=== PATIENT | male | born 1980 ===

== ENCOUNTER 2024-01-11 08:25 | Outpatient (AMB) | payer MEDICARE, MEDICAID, SELFPAY ==
[2024-01-11 08:34] VITALS: BP 120/76; PULSE 70; RESP 18; TEMP 36.8; O2SAT 96; BMI 33.9
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
== END 2024-01-11 09:36 | disposition home or self-care (01) ==
LOC: HODAHC 08:25
PROVIDERS: Supervising Provider Internal Medicine; Visit Provider Student in an Organized Health Care Education/Training Program
DX: I15.0 Renovascular hypertension (principal); N18.6 End stage renal disease; I48.0 Paroxysmal atrial fibrillation
CPT/HCPCS: 99213; G0463

== ENCOUNTER → 2024-01-12 | Outpatient (CLI) | payer MEDICARE, MEDICAID, SELFPAY ==
[2024-01-12 08:35] LABS: Basophils # (Auto) 0.1 Thou/mm3 (0.0-0.2); Basophils % (Auto) 2 % (0-2.5); Eosinophils # (Auto) 0.4 Thou/mm3 (0.0-0.5); Eosinophils % (Auto) 6 % (0-10); Hematocrit 40.2 % (41.0-53.0); Hemoglobin 13.8 g/dL (13.5-16.0); Immature Granulocytes % (Auto) 0 % (0-0); Immature Granulocytes Auto 0.03 Thou/mm3 (0.00-0.00); Lymphocytes # (Auto) 1.6 Thou/mm3 (1.0-4.8); Lymphocytes % (Auto) 22 % (10-50); Mean Corpuscular HGB Conc 34.3 g/dl (31.0-37.0); Mean Corpuscular Hemoglobin 32.2 pg (25.0-35.0); Mean Corpuscular Volume 94 fL (80-100); Monocytes # (Auto) 0.5 Thou/mm3 (0.0-0.8); Monocytes % (Auto) 6 % (0-12); Neutrophils # (Auto) 4.8 Thou/mm3 (1.8-7.7); Neutrophils % (Auto) 65 % (37-80); Nucleated Red Blood Cell % 0 /100 WBC (0); Platelet Count 209 Thou/mm3 (140-440); RDW Standard Deviation 44.5 fL (35.1-43.9); Red Blood Count 4.29 Miln/mm3 (4.50-5.90); White Blood Count 7.4 Thou/mm3 (3.8-10.6)
[2024-01-12 08:49] LABS: Vitamin D 25 Hydroxy Total 24.3 ng/mL (7.3-40.2)
[2024-01-12 08:50] LABS: Alanine Aminotransferase 20 U/L (10-49); Albumin, Serum 4.3 gm/dL (3.5-5.0); Albumin/Globulin Ratio 1.8 (1.2-2.2); Alkaline Phosphatase 70 U/L (46-116); Anion Gap 10 (7-16); Aspartate Amino Transferase 13 U/L (0-34); BUN/Creatinine Ratio 9 Ratio (12-20); Bilirubin,Total 0.4 mg/dL (0.3-1.2); Blood Urea Nitrogen 61 mg/dL (9-23); Carbon Dioxide 29.8 mMol/L (20.0-31.0); Cardiac Risk Estimate 3.8 RATIO (4.0-6.7); Chloride 100 mMol/L (98-107); Cholesterol 134 mg/dL (132-200); Creatinine (Component) 7.1 mg/dL (0.6-1.3); Globulin 2.4 gm/dL (2.3-3.5); Glucose 102 mg/dL (74-106); HDL Cholesterol 35 mg/dL (40-60); LDL Cholesterol,Calculated 76 mg/dL (0-130); Osmolality,Calculated 296 (275-295); Potassium 4.2 mMol/L (3.4-5.1); Sodium 140 mMol/L (136-145); Total Protein 6.7 gm/dL (5.7-8.2); Triglycerides 117 mg/dL (30-150); eGFR 9 See Note
== END | disposition home or self-care (01) ==
PROVIDERS: PCP Student in an Organized Health Care Education/Training Program; Referring Provider Student in an Organized Health Care Education/Training Program; Visit Provider Student in an Organized Health Care Education/Training Program
DX: I15.0 Renovascular hypertension (principal); N18.6 End stage renal disease; I48.0 Paroxysmal atrial fibrillation
CPT/HCPCS: 36415; 80053; 80061; 82306; 85025

== ENCOUNTER 2024-01-17 09:37 | Outpatient (AMB) | payer MEDICARE, MEDICAID, SELFPAY ==
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
== END 2024-01-17 10:30 | disposition home or self-care (01) ==
LOC: HODAHC 09:37
PROVIDERS: Supervising Provider Internal Medicine; Visit Provider Student in an Organized Health Care Education/Training Program
DX: I12.0 Hypertensive chronic kidney disease with stage 5 chronic kidney disease or end stage renal disease (principal); N18.6 End stage renal disease; Z99.2 Dependence on renal dialysis; I48.0 Paroxysmal atrial fibrillation
CPT/HCPCS: 99212; G0463

== ENCOUNTER 2024-02-22 19:53 | Emergency (ER) | payer MEDICARE, MEDICAID, SELFPAY ==
[2024-02-22 20:01] VITALS: PULSE 86; RESP 18; O2SAT 98
[2024-02-22 20:06] VITALS: BMI 30.7
[2024-02-22 20:20] VITALS: BP 156/99; PULSE 82; RESP 18; TEMP 36.8; O2SAT 99
--- NOTE | 2024-02-22 20:30 | XR_ITS ---
Examination: PA lateral chest 2 views Technique: Upright AP lateral chest 2 views Exam date and time: February 22, [id number] hrs. Comparison July 29, 2023 Indications: Onset chest pain today. Findings: Mild opacity left base Mild opacity right base posteriorly on the lateral view obscuring detail right hemidiaphragm No significant cardiac enlargement Right internal jugular dialysis catheter satisfactory position Impression: Early bibasilar pneumonia
--- NOTE | 2024-02-22 20:30 | EKG_ITS ---
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) Order Number: [id number] Reading MD: Mike Greene ([facility]) Measurements Intervals [place] Rate: 79 P: 28 MD: 154 QRS: 11 QRSD: 93 T: 71 QT: 375 QTc: 430 Interpretive Statements SINUS RHYTHM Compared to ECG 11/01/2023 19:29:49 Intraventricular conduction delay no longer present /store/S0/[id number].pdf
--- NOTE | 2024-02-22 20:31 | PD.EDRME ---
Rapid Medical Screening Exam RME Arrival date/time: 02/22/24 19:53 43-year-old male past medical history of A-fib and ESRD presents emergency department complaining of epigastric pain 10 out of 10 with nausea that radiates towards back that started earlier today. Chief Complaint: Chest Pain Time Seen by Provider: 02/22/24 20:09 Vital signs: Vital Signs Temperature 98.2 F 02/22/24 20:20 Pulse Rate 82 02/22/24 20:20 Respiratory Rate 18 02/22/24 20:20 Blood Pressure 156/99 H 02/22/24 20:20 Pulse Oximetry (%) 99 02/22/24 20:20 Oxygen Delivery Method Room Air 02/22/24 20:20 Vital signs reviewed by provider: Yes
[2024-02-22 21:38] LABS: Basophils # (Auto) 0.1 Thou/mm3 (0.0-0.2); Basophils % (Auto) 1 % (0-2.5); Eosinophils # (Auto) 0.3 Thou/mm3 (0.0-0.5); Eosinophils % (Auto) 3 % (0-10); Hemoglobin 14.6 g/dL (13.5-16.0); Immature Granulocytes % (Auto) 1 % (0-0); Immature Granulocytes Auto 0.08 Thou/mm3 (0.00-0.00); Lymphocytes # (Auto) 1.6 Thou/mm3 (1.0-4.8); Lymphocytes % (Auto) 14 % (10-50); Mean Corpuscular Hemoglobin 31.7 pg (25.0-35.0); Mean Corpuscular Volume 93 fL (80-100); Monocytes # (Auto) 0.6 Thou/mm3 (0.0-0.8); Monocytes % (Auto) 6 % (0-12); Neutrophils # (Auto) 8.4 Thou/mm3 (1.8-7.7); Neutrophils % (Auto) 76 % (37-80); Nucleated Red Blood Cell % 0 /100 WBC (0); Platelet Count 200 Thou/mm3 (140-440); Red Blood Count 4.61 Miln/mm3 (4.50-5.90)
[2024-02-22 22:06] LABS: Alanine Aminotransferase 117 U/L (10-49); Albumin, Serum 4.6 gm/dL (3.5-5.0); Albumin/Globulin Ratio 1.6 (1.2-2.2); Alkaline Phosphatase 78 U/L (46-116); Anion Gap 11 (7-16); Aspartate Amino Transferase 181 U/L (0-34); BUN/Creatinine Ratio 8 Ratio (12-20); Bilirubin,Total 0.8 mg/dL (0.3-1.2); Blood Urea Nitrogen 44 mg/dL (9-23); Calcium 9.2 mg/dL (8.3-10.6); Calcium (Corrected) 9.2 mg/dL (8.5-10.1); Carbon Dioxide 26.7 mMol/L (20.0-31.0); Chloride 103 mMol/L (98-107); Creatinine (Component) 5.7 mg/dL (0.6-1.3); Estimated Creatinine Clearance 20.1 mL/min (>60); Globulin 2.9 gm/dL (2.3-3.5); Glucose 101 mg/dL (74-106); Lipase 369 U/L (12-53); Magnesium 2.3 mg/dL (1.6-2.6); Osmolality,Calculated 292 (275-295); Partial Thromboplastin Time 25.6 Seconds (22.0-36.0); Potassium 4.2 mMol/L (3.4-5.1); Prothrombin Time 11.1 Seconds (9.0-12.2); Sodium 141 mMol/L (136-145); Total Protein 7.5 gm/dL (5.7-8.2); Troponin I < 0.020 ng/mL (0.0-0.045); eGFR 12 See Note
[2024-02-22 22:12] LABS: B-Type Natriuretic Peptide 21 pg/mL (0-100)
[2024-02-23 01:01] LABS: Troponin I < 0.020 ng/mL (0.0-0.045)
[2024-02-23 02:02] VITALS: BP 146/84; PULSE 84; RESP 18; O2SAT 97
--- NOTE | 2024-02-23 03:28 | EDNOTE_ITS ---
ED General RME/HPI General Chief complaint: Chest Pain Stated complaint: CHEST PAIN Time Seen by Provider: 02/22/24 20:09 Arrival date/time: 02/22/24 19:53 RME / HPI RME / HPI narrative: Gabriel complaint: 02/22/24 19:53 epigastric pain with nausea that radiates towards back x last 6 hours HPI: Patient is a 43-year-old male past medical history of essential HTN, A-fib and ESRD on HD, who presents to the emergency department complaining of epigastric pain 10 out of 10 with nausea that radiates towards back that started around 7pm. Patient had multiple tooth extraction times this afternoon, and was prescribed Augmentin and Tylenol?codeine combination. Patient took a Tylenol?codeine around 6 PM, and started experience severe spasmodic epigastric pain about 1 hour after taking the medication, with nausea and about 2 episodes of vomiting, nonbilious and nonbloody. He has never had the symptoms before, he denies any fevers or chills, or any other systemic symptoms. Patient symptoms resolved over the next 4-5 hours. In the ED, vitals were within normal limits. Patient is comfortable on exam, with complete resolution of pain. No witnessed episodes of vomiting in the ER. Allergies: NKFDA Social history: Tobacco:?x of >20 pack years of smoking, quit 1 year ago ETOH?Use:?Denies Drug?Note:?Hx of meth and marijuana use, quit 3 years ago Social?History?Note:?Lives?at home with family Family history: Maternal grandmother - gastric cancer in her 70s Uncle- lymphoma Mother- Renal cell cancer s/p nephrectomy Maternal grandfather- Pacemaker for heart block in 80s Paternal grandfather- stroke in his 70s. Related Data Home Medications ?Medication ?Instructions ?Recorded ?Confirmed acetaminophen 500 mg tablet 500 mg PO Q6H PRN pain/fever 07/30/23 01/17/24 hydralazine 25 mg tablet 25 mg PO QDAY 09/02/23 01/17/24 Previous Rx's ?Medication ?Instructions ?Recorded aspirin 81 mg tablet,delayed 81 mg PO QDAY #90 tabs 09/02/23 release carvedilol 25 mg tablet 25 mg PO BID #180 tabs 09/02/23 sevelamer carbonate 800 mg tablet 1,600 mg (2 x 800 mg) PO TID #360 09/02/23 (Renvela) tabs vitamin B complex-vitamin C-folic 1 tab PO QDAY #90 tabs 09/02/23 acid 0.8 mg tablet (Nephro Vitamins) amlodipine 10 mg tablet 10 mg PO QDAY #90 tabs 09/13/23 acetaminophen 500 mg tablet 1,000 mg (2 x 500 mg) PO Q6H PRN 02/23/24 (Non-Aspirin Pain Relief) pain #30 tabs celecoxib 100 mg capsule 100 mg PO BID PRN pain #10 caps 02/23/24 Allergies Allergy/AdvReac Type Severity Reaction Status Date / Time No Known Allergies Allergy Verified 01/17/24 09:30 Review of Systems Review of Systems Narrative Review of Systems: GENERAL: Denies fevers/chills or diaphoresis. HEENT: Denies headache or visual/hearing changes. Denies nasal discharge. NEURO: Denies unusual weakness or difficulty speaking. CARDIO: Denies chest pain or palpitations. PULM: Denies SOB, coughing, or wheezing. GI: Denies abdominal pain, N/V/C/D. Reports having BMs URO: Denies burning/itching/pain/urinary changes. MSK/EXT/SKIN: Denies joint/skeletal/muscle pain, issues/changes in upper or lower extremities, itchiness, or superficial pain. PSYCH: Cooperative, pleasant mood & affect. The rest of the review of systems is otherwise negative. ED Exam Narrative Physical exam: Constitutional Alert, oriented x3 and comfortable HEENT Vision grossly intact. Patent nares. Trachea midline. Respiratory Chest normal on inspection and clear to auscultation bilaterally. Cardiovascular S1 and S2 audible, RRR. No murmurs or carotid bruit. No gross JVD. Abdominal Soft and non tender to palpation in all quadrants. BS + Genitourinary No bladder tenderness, no flank pain. Normal to palpation. Musculoskeletal Extremities tone within normal limits. No LE edema. Neurological CN II - XII grossly intact. Extremity motor and sensation grossly intact. Skin Warm, dry and intact. No apparent lesions. Psychiatric Patient has a good affect, is cooperative. Course Course Course Narrative: Cardiac etiology ruled out - Troponins : negative EKG : sinus rhythm, no ST changes Quality Measures none Orders Category Date Time Status EKG (ED ONLY) *Do not use* NOW Care 02/22/24 20:30 Completed EKG (ED Only) Stat Exams 02/22/24 20:30 Draft XR chest 2V Stat Exams 02/22/24 20:30 Completed B-Type Natriuretic Peptide Stat Lab 02/22/24 21:06 Completed CBC Stat Lab 02/22/24 21:06 Completed Comprehensive Metabolic Panel Stat Lab 02/22/24 21:06 Completed Lipase Stat Lab 02/22/24 21:06 Completed Magnesium Stat Lab 02/22/24 21:06 Completed Partial Thromboplastin Time Stat Lab 02/22/24 21:06 Completed Prothrombin Time with INR Stat Lab 02/22/24 21:06 Completed Troponin I Stat Lab 02/22/24 21:06 Completed Troponin I Stat Lab 02/23/24 00:36 Completed Vital Signs Vital signs: Vital Signs Temperature 98.2 F 02/22/24 20:20 Pulse Rate 82 02/22/24 20:20 Respiratory Rate 18 02/22/24 20:20 Blood Pressure 156/99 H 02/22/24 20:20 Pulse Oximetry (%) 99 02/22/24 20:20 Oxygen Delivery Method Room Air 02/22/24 20:20 [facility] Patient data External records reviewed:: None Clinical information provided by:: patient and family Social determinants that could affect healthcare access:: none Patient has the following chronic illnesses:: HTN, Afib, ESRD on HD, recent tooth extractions How is presenting disease/condition affected by chronic disease/condition?: e xacerbated by Evaluation data The following diagnostics were reviewed and interpreted by me:: lab results, radiology exam(s) and EKG tracing(s) Lab and/or radiology exams considered but not ordered:: CT Chest Interpretation Summary: 43 year old male who had spasmodic epigastric pain after take tylenol-codeine after tooth extractions Pain likely secondary to pancreatic duct spasm from codeine. Medications Medications considered but not ordered:: Morphine Medication administrations:: IV Consultations Consultation(s) initiated? (list below): No Diagnosis Differential Diagnosis ED Complaint MDM: Pancreatitis Most likely diagnosis given after review of the tests above:: Sphincter of Oddi spasm Admission Indicated Admission indicated?: not indicated Explain why admission is indicated or not indicated:: Pain resolved in the ED. Recommend to stop codeine. Admission Request Was there a request for admission?: No Disposition Plan Disposition Plan: Discharge Discharge Attestation Discharge Attestation: The patient and all family members were given an opportunity to ask questions and understood the discharge instructions. Discharge instructions specifically effects, indications for sooner follow up or return to the emergency department, and the expected course of current diagnosis. Patient condition: Stable Medical Decision Making MDM Narrative MDM Narrative: Patient is a 43 year old male who was seen in the ED for spasmodic epigastric pain after taking tylenol-codeine pills for pain. Diagnosis: Likely pancreatic duct spasm, lipase mildly elevated 369. pain resolved in the ED after 4-5 hours. Plan: He was advised to stop the codeine and only take regular tylenol/NSAIDs for toooth ache post extraction. Differential Diagnosis Differential Diagnosis: Pancreatitis Lab Data 02/22/24 21:06 02/22/24 21:06 Labs: Lab Results 02/22/24 02/23/24 Range/Units 21:06 00:36 WBC 11.0 H (3.8-10.6) Thou/mm3 RBC 4.61 (4.50-5.90) Miln/mm3 Hgb 14.6 (13.5-16.0) g/dL Hct 43.0 (41.0-53.0) % MCV 93 (80-100) fL MCH 31.7 (25.0-35.0) pg MCHC 34.0 (31.0-37.0) g/dl RDW Std Deviation 47.0 H (35.1-43.9) fL Plt Count 200 (140-440) Thou/mm3 Neut % (Auto) 76 (37-80) % Lymph % (Auto) 14 (10-50) % [place] % (Auto) 6 (0-12) % Eos % (Auto) 3 (0-10) % Baso % (Auto) 1 (0-2.5) % Neut # (Auto) 8.4 H (1.8-7.7) Thou/mm3 Lymph # (Auto) 1.6 (1.0-4.8) Thou/mm3 [place] # (Auto) 0.6 (0.0-0.8) Thou/mm3 Eos # (Auto) 0.3 (0.0-0.5) Thou/mm3 Baso # (Auto) 0.1 (0.0-0.2) Thou/mm3 Immature Gran # (Auto) 0.08 H (0.00-0.00) Thou/mm3 Absolute Nucleated RBC 0.00 (0.00-0.00) Thou/mm3 Immature Gran % 1 H (0-0) % Nucleated RBC % 0 (0) /100 WBC PT 11.1 (9.0-12.2) Seconds INR 1.0 (0.9-1.3) APTT 25.6 (22.0-36.0) Seconds Sodium 141 (136-145) mMol/L Potassium 4.2 (3.4-5.1) mMol/L Chloride 103 (98-107) mMol/L Carbon Dioxide 26.7 (20.0-31.0) mMol/L Anion Gap 11 (7-16) BUN 44 H (9-23) mg/dL Creatinine 5.7 H* (0.6-1.3) mg/dL Estim Creat Clear Calc 20.1 L (>60) mL/min eGFR 12 L* (60 - ) See Note BUN/Creatinine Ratio 8 L (12-20) Ratio Glucose 101 (74-106) mg/dL Calculated Osmolality 292 (275-295) Calcium 9.2 (8.3-10.6) mg/dL Corrected Calcium 9.2 (8.5-10.1) mg/dL Magnesium 2.3 (1.6-2.6) mg/dL Total Bilirubin 0.8 (0.3-1.2) mg/dL AST 181 H (0-34) U/L ALT 117 H (10-49) U/L Alkaline Phosphatase 78 (46-116) U/L Troponin I < 0.020 < 0.020 (0.0-0.045) ng/mL B-Natriuretic Peptide 21 (0-100) pg/mL Total Protein 7.5 (5.7-8.2) gm/dL Albumin 4.6 (3.5-5.0) gm/dL Globulin 2.9 (2.3-3.5) gm/dL Albumin/Globulin Ratio 1.6 (1.2-2.2) Lipase 369 H (12-53) U/L Discharge Plan Plan Patient Disposition: HOME (Self Care) Patient condition on transfer: Stable Prescriptions/Referrals Prescriptions/Med Rec: New acetaminophen [Non-Aspirin Pain Relief] 500 mg tablet 1,000 mg PO Q6H PRN (Reason: pain) Qty: 30 0RF celecoxib 100 mg capsule 100 mg PO BID PRN (Reason: pain) Qty: 10 0RF No Action aspirin 81 mg tablet,delayed release (DR/EC) 81 mg PO QDAY Qty: 90 1RF carvedilol 25 mg tablet 25 mg PO BID Qty: 180 1RF Rx Instructions: must administer with a meal/food sevelamer carbonate [Renvela] 800 mg tablet 1,600 mg PO TID Qty: 360 3RF Rx Instructions: must administer with a meal/food hydralazine 25 mg tablet 25 mg PO QDAY Nephro Vitamins 0.8 mg tablet 1 tab PO QDAY Qty: 90 1RF amlodipine 10 mg tablet 10 mg PO QDAY Qty: 90 1RF acetaminophen 500 mg Tablet 500 mg PO Q6H PRN (Reason: pain/fever) Referrals: No Primary/Family,Physician [Primary Care Provider] - In 1 week Problem List Clinical Impression: Abdominal pain Patient/Caregiver Discharge Instructions Education Materials: Measuring Your Pain Print Language: Moroccan Stand Alone Forms: Marjan Pastor Info., Patient Portal Info Letter
== END 2024-02-23 04:00 | disposition home or self-care (01) ==
PROVIDERS: Emergency Provider Emergency Medicine
DX: R10.13 Epigastric pain (principal); R07.9 Chest pain, unspecified; I48.91 Unspecified atrial fibrillation; I12.0 Hypertensive chronic kidney disease with stage 5 chronic kidney disease or end stage renal disease; N18.6 End stage renal disease; Z99.2 Dependence on renal dialysis
CPT/HCPCS: 36415; 71046; 80053; 83690; 83735; 83880; 84484; 85025; 85610; 85730; 93005; 99283

== ENCOUNTER 2024-04-11 09:16 | Outpatient (AMB) | payer MEDICARE, MEDICAID, SELFPAY ==
[2024-04-11 09:38] VITALS: BP 127/89; PULSE 80; RESP 16; TEMP 36.2; O2SAT 95; BMI 37.6
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
== END 2024-04-11 10:01 | disposition home or self-care (01) ==
LOC: HODAHC 09:16
PROVIDERS: Supervising Provider Internal Medicine
DX: I13.2 Hypertensive heart and chronic kidney disease with heart failure and with stage 5 chronic kidney disease, or end stage renal disease (principal); I50.30 Unspecified diastolic (congestive) heart failure; N18.6 End stage renal disease; Z99.2 Dependence on renal dialysis; I48.0 Paroxysmal atrial fibrillation; Z79.82 Long term (current) use of aspirin
CPT/HCPCS: 99213; G0463

== ENCOUNTER → 2024-06-08 | Outpatient (CLI) | payer MEDICARE, MEDICAID, SELFPAY ==
[2024-06-08 10:12] LABS: Basophils # (Auto) 0.1 Thou/mm3 (0.0-0.2); Basophils % (Auto) 1 % (0-2.5); Eosinophils # (Auto) 0.4 Thou/mm3 (0.0-0.5); Eosinophils % (Auto) 5 % (0-10); Hematocrit 41.1 % (41.0-53.0); Hemoglobin 14.4 g/dL (13.5-16.0); Immature Granulocytes % (Auto) 1 % (0-0); Immature Granulocytes Auto 0.05 Thou/mm3 (0.00-0.00); Lymphocytes # (Auto) 1.8 Thou/mm3 (1.0-4.8); Lymphocytes % (Auto) 24 % (10-50); Mean Corpuscular Hemoglobin 32.5 pg (25.0-35.0); Mean Corpuscular Volume 93 fL (80-100); Monocytes # (Auto) 0.5 Thou/mm3 (0.0-0.8); Monocytes % (Auto) 7 % (0-12); Neutrophils # (Auto) 4.7 Thou/mm3 (1.8-7.7); Neutrophils % (Auto) 62 % (37-80); Nucleated Red Blood Cell % 0 /100 WBC (0); Platelet Count 210 Thou/mm3 (140-440); RDW Standard Deviation 45.5 fL (35.1-43.9); Red Blood Count 4.43 Miln/mm3 (4.50-5.90); White Blood Count 7.5 Thou/mm3 (3.8-10.6)
[2024-06-08 10:23] LABS: Glucose Estimated Average 103 mg/dL (80-131); Hemoglobin A1C 5.2 % Hgb (4.8-6.0)
[2024-06-08 10:27] LABS: Vitamin D 25 Hydroxy Total 35.5 ng/mL (7.3-40.2)
[2024-06-08 10:29] LABS: Alanine Aminotransferase 39 U/L (10-49); Albumin, Serum 4.3 gm/dL (3.5-5.0); Albumin/Globulin Ratio 1.5 (1.2-2.2); Alkaline Phosphatase 83 U/L (46-116); Anion Gap 12 (7-16); Aspartate Amino Transferase 23 U/L (0-34); BUN/Creatinine Ratio 7 Ratio (12-20); Bilirubin,Total 0.6 mg/dL (0.3-1.2); Blood Urea Nitrogen 43 mg/dL (9-23); Calcium 9.2 mg/dL (8.3-10.6); Calcium (Corrected) 9.2 mg/dL (8.5-10.1); Carbon Dioxide 31.5 mMol/L (20.0-31.0); Cardiac Risk Estimate 4.1 RATIO (4.0-6.7); Chloride 100 mMol/L (98-107); Cholesterol 127 mg/dL (132-200); Creatinine (Component) 5.9 mg/dL (0.6-1.3); Globulin 2.8 gm/dL (2.3-3.5); Glucose 106 mg/dL (74-106); HDL Cholesterol 31 mg/dL (40-60); LDL Cholesterol,Calculated 62 mg/dL (0-130); Magnesium 2.3 mg/dL (1.6-2.6); Osmolality,Calculated 295 (275-295); Phosphorous 4.2 mg/dL (2.4-5.1); Potassium 3.9 mMol/L (3.4-5.1); Sodium 143 mMol/L (136-145); Thyroid Stimulating Hormone 3.48 uIU/mL (0.55-4.78); Total Protein 7.1 gm/dL (5.7-8.2); Triglycerides 170 mg/dL (30-150); eGFR 11 See Note
== END | disposition home or self-care (01) ==
PROVIDERS: PCP Internal Medicine; Referring Provider Internal Medicine; Visit Provider Internal Medicine
DX: N18.6 End stage renal disease (principal)
CPT/HCPCS: 36415; 80053; 80061; 82306; 83036; 83735; 84100; 84443; 85025; 86850; 86900; 86901

== ENCOUNTER 2024-06-13 08:54 | Outpatient (AMB) | payer MEDICARE, MEDICAID, SELFPAY ==
[2024-06-13 08:55] VITALS: BP 106/71; PULSE 80; RESP 18; TEMP 36.2; O2SAT 93; BMI 36.9
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
== END 2024-06-13 10:04 | disposition home or self-care (01) ==
LOC: HODAHC 08:54
PROVIDERS: Supervising Provider Internal Medicine
DX: I12.0 Hypertensive chronic kidney disease with stage 5 chronic kidney disease or end stage renal disease (principal); N18.6 End stage renal disease; Z99.2 Dependence on renal dialysis; I48.0 Paroxysmal atrial fibrillation; J30.2 Other seasonal allergic rhinitis
CPT/HCPCS: 99213; G0463